=== PATIENT | male | born 1965 | race Caucasian/White ===

== ENCOUNTER → 2017-05-22 | Outpatient (CLI) | payer MEDICARE ==
[2017-05-22 13:21] LABS: CORONAVIRUS 229E NOT DETECTED (NOT DETECTE); CORONAVIRUS HKU 1 NOT DETECTED (NOT DETECTE); CORONAVIRUS NL63 NOT DETECTED (NOT DETECTE); CORONAVIRUS OC43 NOT DETECTED (NOT DETECTE); RHINOVIRUS/ENTEROVIRUS NOT DETECTED (NOT DETECTE)
[2017-05-22 14:28] LABS: HEMOGLOBIN 14.1 g/dL (14.1-18.0); LYMPH % 5.9 % (10-50)
[2017-05-22 16:07] LABS: BUN 17 mg/dL (7-18)
[2017-05-22 16:09] LABS: NEUTROPHILS 96 % (42-76)
[2017-05-22 16:16] LABS: GFR (ESTIMATED) 88 ML/MIN (>60)
== END ==
LOC: CARL-LAB 07:33
PROVIDERS: Internal Medicine Adolescent Medicine
DX: E78.5 Hyperlipidemia, unspecified (principal); J18.0 Bronchopneumonia, unspecified organism; R73.9 Hyperglycemia, unspecified; R05 Cough